=== PATIENT | male | born 1990 | race African-American/Black ===

== ENCOUNTER 2018-04-26 05:02 | Emergency (ER) | payer SELFPAY ==
[~2018-04-26] VITALS: Ht 182.9 cm; Wt 72.6 kg
[2018-04-26] MEDS ORDERED: NKM (05:04)
[2018-04-26 05:11] VITALS: BP 122/83
--- NOTE | 2018-04-26 05:14 | NUR ---
ED Nurse Note: Patient biba RA 28 c/o of weakness, patient was found laying down at [employer], complains of "whole body pain" 12/23. at time of arrival patient states that "at the other hospital i was shot with black tar heroin". Presents with auditory hallucinations; denies intent to harm self or others. AO3; name time and place. NAD VSS Attached to cardiac care nurse.
--- NOTE | 2018-04-26 05:18 | Emergency Room Report ---
History of Present Illness General Chief Complaint: Pain Source: Patient Present Illness HPI Is a 27-year-old male with no past medical history. He presents with chief complaint generalized weakness. He was in a [employer] and was sleeping there. Every time an employee would wake him up he removed a different area and go back to sleep. After 3 or 4 times, they call 911. When police got there , he complaining of weakness so they call [facility] to take him here. Patient complained Amrija his weakness. He said his been singing and dancing all day and has not been sleeping. Denies any trauma. No fever chills but no nausea no vomiting. Denies any other complaint. Allergies: Coded Allergies: No Known Allergies (Unverified , 04/26/18) Patient History Past Medical History: none, see triage record, old chart reviewed Past Surgical History: none Pertinent Family History: none Social History: Denies: smoking Immunizations: other Reviewed Nursing Documentation: PMH: Agreed; PSxH: Agreed Nursing Documentation-PMH Past Medical History: No Stated History Review of Systems Constitutional: Reports: weakness Eye: Denies: eye pain, blurred vision ENT: Denies: ear pain, nose congestion, throat swelling Respiratory: Denies: cough, shortness of breath Cardiovascular: Denies: chest pain, palpitations Gastrointestinal: Denies: abdominal pain, diarrhea, nausea, vomiting Musculoskeletal: Denies: back pain, joint pain Skin: Denies: rash Neurological: Denies: headache, numbness Endocrine: Denies: increased thirst, increased urine Hematologic/Lymphatic: Denies: easy bruising All Other Systems: negative except mentioned in HPI Physical Exam Vital Signs Date Time Temp Pulse Resp B/P (MAP) Pulse Ox O2 Delivery O2 Flow Rate FiO2 04/26/18 05:00 97.9 81 22 122/83 99 Room Air vitals normal Sp02 EP Interpretation: reviewed, normal General Appearance: well appearing, no apparent distress, alert Head: normocephalic, atraumatic Eyes: bilateral eye PERRL, bilateral eye EOMI ENT: hearing grossly normal, normal pharynx Neck: full range of motion, supple, no meningismus Respiratory: chest non-tender, lungs clear, normal breath sounds Cardiovascular #1: regular rate, rhythm, no murmur Gastrointestinal: normal bowel sounds, non tender, no mass, no organomegaly, no bruit, non-distended Musculoskeletal: back normal, gait/station normal, normal range of motion Psychiatric: mood/affect normal Skin: warm/dry Medical Decision Making Diagnostic Impression: Primary Impression: Weakness generalized ER Course Patient presents with general as weakness. I suspect that he does want a place to stay and sleep. When I went into the room, he was singing. No evidence of any distress. May be some underlying psychiatric issue. He's walking around without any difficulty. He said is not homeless. We'll discharge home. I see no need for labs or CT scan. Last Vital Signs Date Time Temp Pulse Resp B/P (MAP) Pulse Ox O2 Delivery O2 Flow Rate FiO2 04/26/18 05:11 97.9 86 22 122/83 99 Room Air Status: improved Disposition: HOME, SELF-CARE Condition: Stable Additional Instructions: Follow-up with your doctor in 7 days. Return if symptom worsen. Marbin Ochoa MD Apr 26, 2018 05:18
[2018-04-26 05:20] VITALS: BP 122/83
--- NOTE | 2018-04-26 05:20 | NUR ---
ED Nurse Note: ED Nurse Note: Patient cleared for discharge per ERMD. NAD. VSS. Patient given prescriptions and discharge instructions; verbalized understanding. ID band removed. Provided with sandwich and juice. Patient ambulated steady with all personal belongings.
== END 2018-04-26 05:20 | disposition home or self-care (01) ==
LOC: EDBD 05:02 → EMR 05:20
DX: R53.1 Weakness (principal); M79.10 Myalgia, unspecified site
CPT/HCPCS: 99281